=== PATIENT | male | born 1990 | race Caucasian/White ===

== ENCOUNTER → 2017-04-05 | Day surgery (SDC) | payer OTHER, MEDICAID, MEDICARE ==
[~2017-04-05] MED LIST: LIDOCAINE 1% PF 2 ML VIAL. ID; LIDOCAINE 2% PF Vial for OR 5 ML VIAL.; MIDAZOLAM HCL/PF 2 MG/2 ML VIAL. IV; PROPOFOL 40 ML IV; fentaNYL PF VIAL 100 MCG/2 ML VIAL IV
[2017-04-05] MEDS: IV RINGERS,LACTATED 1000ML 1,000 ML IV (11:29)
== END | disposition home or self-care (01) ==
LOC: SURG 10:41
DX: K21.0 Gastro-esophageal reflux disease with esophagitis (principal); F41.9 Anxiety disorder, unspecified; J45.909 Unspecified asthma, uncomplicated; F32.9 Major depressive disorder, single episode, unspecified; F17.200 Nicotine dependence, unspecified, uncomplicated; Z90.49 Acquired absence of other specified parts of digestive tract; Z72.89 Other problems related to lifestyle; Z72.0 Tobacco use
CPT/HCPCS: 43239; 88305; J2704

== ENCOUNTER 2019-06-22 10:19 | Emergency (ER) | payer OTHER, MEDICAID ==
[~2019-06-22] VITALS: Ht 182.9 cm; Wt 120.3 kg
[~2019-06-22 10:19] MED LIST changes: +ALPR1TAB2 PO; -LIDOCAINE 1% PF 2 ML VIAL. ID; -LIDOCAINE 2% PF Vial for OR 5 ML VIAL.; -MIDAZOLAM HCL/PF 2 MG/2 ML VIAL. IV; -PROPOFOL 40 ML IV; +antianxiety; +antidepressant; -fentaNYL PF VIAL 100 MCG/2 ML VIAL IV
--- NOTE | 2019-06-22 11:27 | PHYS DOC ---
Past Medical History Past Medical History: Bipolar, Other Additional Past Medical Histor: SCHIZOEFFECTIVE Past Surgical History: Other Additional Past Surgical Histo: KNEE/EAR Smoking Status: Current Every Day Smoker Additional Information: 0.25 PPD Alcohol Use: Rarely Adult General Chief Complaint Chief Complaint: BACK PAIN OR INJURY [facility] HPI Patient is a 28 year old male who presents to the ER with complaint of left sided flank/back pain. Patient states that he fell 8 days ago down 2 steps and landed on his left side. It this did not seem like a significant fall. The next day he was sore and it has continued to get worse since then. Movement makes his pain worse. His pain is rated as moderate to severe without radiculopathy. No medications taken prior to arrival. No difficulty with urination or saddle anesthesia. No Hematuria or dysuria Review of Systems Review of Systems All other ROS is negative unless otherwise stated in [facility] Allergies Allergies Allergies Coded Allergies Type Severity Reaction Last Updated Verified No Known Drug Allergies 04/05/17 No Physical Exam Physical Exam See above Constitutional: Well developed, well nourished, appears uncomfortable, non-toxic appearance. [] HENT: Normocephalic, atraumatic, bilateral external ears normal, oropharynx moist, no oral exudates, nose normal. [] Eyes: PERRLA, EOMI, conjunctiva normal, no discharge. [] Neck: Normal range of motion, no tenderness, supple, no stridor. [] Cardiovascular:Heart rate regular rhythm, no murmur [] Lungs & Thorax: Bilateral breath sounds clear to auscultation [] Abdomen: Bowel sounds normal, soft, no tenderness, no masses, no pulsatile m asses. [] Skin: Warm, dry, no erythema, no rash. [] Back: Tenderness to palpation left flank region. No midline step-offs or deformities noted Extremities: No tenderness, no cyanosis, no clubbing, ROM intact, no edema. [] Neurologic: Alert and oriented X 3, normal motor function, normal sensory f unction, no focal deficits noted. [] Psychologic: Affect normal, judgement normal, mood normal. [] Current Patient Data Vital Signs Vital Signs Date Time Temp Pulse Resp B/P (MAP) Pulse Ox O2 Delivery O2 Flow Rate FiO2 06/22/19 10:38 97.5 77 19 144/90 (108) 98 Room Air 97.5 Lab Values Laboratory Tests Test 06/22/19 11:25 Urine Collection Type Unknown Urine Color Yellow Urine Clarity Clear Urine pH 7.0 Urine Specific [place] 1.020 Urine Protein Negative mg/dL (NEG-TRACE) Urine Glucose (UA) Negative mg/dL (NEG) Urine Ketones (Stick) Negative mg/dL (NEG) Urine Blood Negative (NEG) Urine Nitrite Negative (NEG) Urine Bilirubin Negative (NEG) Urine Urobilinogen Dipstick 0.2 mg/dL (0.2 mg/dL) Urine Leukocyte Esterase Negative (NEG) Urine RBC 0 /HPF (0-2) Urine WBC 0 /HPF (0-4) Urine Squamous Epithelial Cells Occ /LPF Urine Bacteria 0 /HPF (0-FEW) Urine Mucus Marked /LPF Urine Opiates Screen Neg (NEG) Urine Methadone Screen Neg (NEG) Urine Barbiturates Neg (NEG) Urine Phencyclidine Screen Neg (NEG) Urine Amphetamine/Methamphetamine Neg (NEG) Urine Benzodiazepines Screen Pos (NEG) Urine Cocaine Screen Neg (NEG) Urine Cannabinoids Screen Pos (NEG) Urine Ethyl Alcohol Neg (NEG) EKG EKG [] Radiology/Procedures Radiology/Procedures EXAM: CHEST PA LATERAL INDICATION: Dysphagia. Patient took medicine this morning and vomited back up. Complains of a metallic taste in the mouth.. TECHNIQUE: PA and lateral views COMPARISON: Acute abdominal series of 03/30/2016 FINDINGS: The heart size is normal. The great vessels appear unremarkable. There is no hilar or mediastinal mass. The lungs are clear. There is no pleural effusion or pneumothorax. There are no significant osseous abnormalities. IMPRESSION: No active cardiopulmonary disease.[] Course & Med Decision Making Course & Med Decision Making Pertinent Labs and Imaging studies reviewed. (See chart for details) Patient seen for left flank pain after a fall. We'll get an x-ray of the patient's left ribs and the chest x-ray. Urinalysis to evaluate for renal injury. 1206: Patient's x-ray is unremarkable. His urinalysis does not show sign of infection or hematuria that would be concerning for renal injury. His UDS did test positive for benzos and marijuana but the patient states he has psychiatric medications that he takes nightly. Given his ongoing symptoms and we'll start him on muscle relaxer, steroids, anti-inflammatory and something for pain. He is to follow-up with his primary care physician next week for further evaluation if his symptoms continue. Dragon Disclaimer Dragon Disclaimer This electronic medical record was generated, in whole or in part, using a voice recognition dictation system. Departure Departure Impression: Primary Impression: Left flank pain Disposition: HOME, SELF-CARE Condition: STABLE Referrals: ELIZABETH GUERRIER MD (PCP) Call today for follow up appointment on Tuesday or Tuesday. Patient Instructions: Flank Pain Scripts Hydrocodone/Apap 5-325 (NORCO 5-325 TABLET) 1 Each Tablet 1 TAB PO PRN Q6HRS PRN for PAIN, #10 TAB 0 Refills Prov: KRZYSZTOF MURRELL DO 06/22/19 Cyclobenzaprine Hcl (CYCLOBENZAPRINE HCL) 10 Mg Tablet 1 TAB PO TID, #21 TAB Prov: KRZYSZTOF MURRELL DO 06/22/19 Diclofenac Sodium (DICLOFENAC SODIUM) 75 Mg Tablet.dr 1 TAB PO BID for 10 Days, #20 TAB 1 Refill Prov: KRZYSZTOF MURRELL DO 06/22/19 Prednisone (PREDNISONE) 50 Mg Tablet 1 TAB PO DAILY, #5 TAB Prov: KRZYSZTOF UMRRELL DO 06/22/19 KRZYSZTOF MURRELL DO Jun 22, 2019 11:27
--- NOTE | 2019-06-22 11:40 | RAD ---
RIBS LEFT AND PA CHEST History: Pain. Fall. Technique: PA view the chest and 3 views of the left ribs. Comparison: None. Findings: No consolidation or pleural effusion. Normal heart size. No pneumothorax. Surgical clips right upper quadrant. Prominence of the right hilum. Calcified right basilar pulmonary nodule. No displaced rib fractures. Impression: 1. No acute cardiopulmonary process. No displaced rib fractures. 2. Prominence of the right hilum, may relate to enlarged pulmonary vasculature or lymphadenopathy. Recommend comparison with prior imaging studies. Electronically signed by: Abilio Felton DO (06/22/2019 11:37 AM) [id number]
[2019-06-22 11:42] LABS: BILIRUBIN,URINE NEGATIVE (NEG); CLARITY,URINE CLEAR; COLOR,URINE YELLOW; NITRITE,URINE NEGATIVE (NEG); PROTEIN,URINE NEGATIVE (NEG-TRACE); UROBILINOGEN,URINE 0.2 mg/dL (0.2 mg/dL)
[2019-06-22 11:46] LABS: BACTERIA,URINE 0 /HPF (0-FEW); RBC,URINE 0 /HPF (0-2); SQUAMOUS EPITHELIAL CELL,UR OCC /LPF; WBC,URINE 0 /HPF (0-4)
[2019-06-22 11:52] LABS: BARBITURATES NEG (NEG); BENZODIAZEPINES POS (NEG); CANNABINOIDS POS (NEG); COCAINE NEG (NEG); METHADONE NEG (NEG); OPIATES NEG (NEG); PHENCYCLIDINE NEG (NEG)
[2019-06-22 11:54] LABS: AMPHETAMINE/METHAMPHETAMINE NEG (NEG)
[2019-06-22] MEDS ORDERED: HYDR-3164 PO (12:09)
[2019-06-22] MEDS ORDERED: PRED50TA PO (12:09)
[2019-06-22] MEDS ORDERED: CYCL10TA2 PO (12:09)
[2019-06-22] MEDS ORDERED: DICL75TA PO (12:09)
[2019-06-22 12:14] VITALS: BP 146/78
== END 2019-06-22 12:14 | disposition home or self-care (01) ==
LOC: ER 10:19
DX: R10.9 Unspecified abdominal pain (principal); R07.81 Pleurodynia; G89.11 Acute pain due to trauma; F31.9 Bipolar disorder, unspecified; F17.200 Nicotine dependence, unspecified, uncomplicated; W10.8XXA Fall (on) (from) other stairs and steps, initial encounter; Y93.89 Activity, other specified; Y92.89 Other specified places as the place of occurrence of the external cause; Y99.8 Other external cause status
CPT/HCPCS: 71101; 80307; 81001; 99284-25

== ENCOUNTER 2019-12-11 00:44 | Emergency (ER) | payer OTHER, MEDICAID ==
[~2019-12-11] VITALS: Ht 198.1 cm; Wt 118.0 kg
[~2019-12-11 00:44] MED LIST changes: +CYCL10TA2 PO; +DICL75TA PO; +HYDR-3164 PO; +PRED50TA PO
[2019-12-11 00:50] VITALS: BP 142/82
[2019-12-11] MEDS ORDERED: ONDANSETRON PF 4 MG/2 ML VIAL. IVP ONE (02:00)
[2019-12-11 02:36] LABS: BILIRUBIN,URINE NEGATIVE (NEG); CLARITY,URINE CLEAR; COLOR,URINE YELLOW; NITRITE,URINE NEGATIVE (NEG); PROTEIN,URINE NEGATIVE (NEG-TRACE)
[2019-12-11 02:37] LABS: BASO # 0.1 x10^3/uL (0.0-0.2); BASO % 1 % (0-3); EOS # 0.1 x10^3/uL (0.0-0.7); EOS % 1 % (0-3); HEMATOCRIT 46.1 % (39.0-53.0); HEMOGLOBIN 16.1 g/dL (13.0-17.5); LYMPH # 2.6 x10^3/uL (1.0-4.8); LYMPH % 18 % (24-48); MEAN CORPUSCULAR HEMOGLOBIN 29 pg (25-35); MEAN CORPUSCULAR HGB CONC 35 g/dL (31-37); MEAN CORPUSCULAR VOLUME 83 fL (79-100); MONO # 1.1 x10^3/uL (0.0-1.1); MONO % 7 % (0-9); NEUT # 10.6 x10^3/uL (1.8-7.7); NEUT % 74 % (31-73); PLATELET COUNT 366 x10^3/uL (140-400); RED BLOOD COUNT 5.54 x10^6/uL (4.30-5.70); RED CELL DISTRIBUTION WIDTH 13.4 % (11.5-14.5); WHITE BLOOD COUNT 14.4 x10^3/uL (4.0-11.0)
[2019-12-11 02:42] LABS: BACTERIA,URINE 0 /HPF (0-FEW); RBC,URINE 0 /HPF (0-2); SQUAMOUS EPITHELIAL CELL,UR OCC /LPF; WBC,URINE 0 /HPF (0-4)
[2019-12-11 02:52] LABS: ALBUMIN 4.5 g/dL (3.4-5.0); ALBUMIN/GLOBULIN RATIO 1.3 (1.0-1.7); CALCIUM 9.4 mg/dL (8.5-10.1); CREATININE 0.8 mg/dL (0.7-1.3); GFR 113.5; TOTAL BILIRUBIN 0.7 mg/dL (0.2-1.0); TOTAL PROTEIN 7.9 g/dL (6.4-8.2)
[2019-12-11 03:03] LABS: POTASSIUM 2.9 mmol/L (3.5-5.1)
--- NOTE | 2019-12-11 03:08 | PHYS DOC ---
Past Medical History Past Medical History: Bipolar, Other Additional Past Medical Histor: SCHIZOEFFECTIVE Past Surgical History: Other Additional Past Surgical Histo: KNEE/EAR Smoking Status: Current Every Day Smoker Alcohol Use: Rarely Social History Narrative: OVER 24 HOURS AGO. General Adult EDM: Chief Complaint: ABDOMINAL PAIN HPI: HPI: Patient is a 29 year old male who presents with chronic intermittent abdominal pain. Patient reports that since his cholecystectomy 2 years ago he has had a change in bowel movements as well as intermittent epigastric abdominal pain and vomiting. Tonight he stated that he did have this again. On Tuesday he said he started having abdominal pain and then on Tuesday he began to have episodes of vomiting. He said he vomited probably about 5-10 times. The epigastric abdominal pain is sharp, nonradiating and intermittent. Patient denied any diarrhea, melena, hematochezia or hematemesis. He also denied any fever, chills, shortness of breath or chest pain. Review of Systems: Review of Systems: Constitutional: Denies fever or chills. [] Eyes: Denies change in visual acuity. [] HENT: Denies nasal congestion or sore throat. [] Respiratory: Denies cough or shortness of breath. [] Cardiovascular: Denies chest pain or edema. [] GI: Denies abdominal pain, nausea, vomiting, bloody stools or diarrhea. [] : Denies dysuria. [] Musculoskeletal: Denies back pain or joint pain. [] Integument: Denies rash. [] Neurologic: Denies headache, focal weakness or sensory changes. [] Endocrine: Denies polyuria or polydipsia. [] Lymphatic: Denies swollen glands. [] Psychiatric: Denies depression or anxiety. [] Heart Score: Risk Factors: Risk Factors: DM, Current or recent (<one month) smoker, HTN, HLP, family history of CAD, obesity. Risk Scores: Score 0 - 3: 2.5% MACE over next 6 weeks - Discharge Home Score 4 - 6: 20.3% MACE over next 6 weeks - Admit for Clinical Observation Score 7 - 10: 72.7% MACE over next 6 weeks - Early Invasive Strategies Current Medications: Current Medications Medications (Trade) Dose Ordered Sig/Erik Start Time Stop Time Status Last Admin Dose Admin Al Hydroxide/Mg Hydroxide (Mylanta Plus Xs) 30 ml 1X ONCE 12/11/19 03:15 12/11/19 03:16 UNV Famotidine (Pepcid) 20 mg 1X ONCE 12/11/19 03:15 12/11/19 03:16 UNV Metoclopramide HCl (Reglan Vial) 10 mg 1X ONCE 12/11/19 03:15 12/11/19 03:16 UNV Ondansetron HCl (Zofran) 4 mg 1X ONCE 12/11/19 02:00 12/11/19 02:01 DC 12/11/19 02:11 4 MG Potassium Chloride (Klor-Con) 60 meq 1X ONCE 12/11/19 03:15 12/11/19 03:16 UNV Sodium Chloride 500 ml @ 500 mls/hr 1X ONCE 12/11/19 03:15 12/11/19 04:14 UNV Allergies: Allergies: Allergies Coded Allergies Type Severity Reaction Last Updated Verified No Known Drug Allergies 04/05/17 No Physical Exam: PE: Constitutional: Well developed, well nourished, no acute distress, non-toxic appearance. [] HENT: Normocephalic, atraumatic, bilateral external ears normal, oropharynx moist, no oral exudates, nose normal. [] Eyes: PERRLA, EOMI, conjunctiva normal, no discharge. [] Neck: Normal range of motion, no tenderness, supple, no stridor. [] Cardiovascular:Heart rate regular rhythm, no murmur [] Lungs & Thorax: Bilateral breath sounds clear to auscultation [] Abdomen: Bowel sounds normal, soft, epigastric tenderness, negative Barber sign, no masses, no pulsatile masses. [] Skin: Warm, dry, no erythema, no rash. [] Back: No tenderness, no CVA tenderness. [] Extremities: No tenderness, no cyanosis, no clubbing, ROM intact, no edema. [] Neurologic: Alert and oriented X 3, normal motor function, normal sensory function, no focal deficits noted. [] Psychologic: Affect normal, judgement normal, mood normal. [] Current Patient Data: Labs: Laboratory Tests Test 12/11/19 00:52 12/11/19 01:50 12/11/19 02:18 Urine Collection Type Unknown Urine Color Yellow Urine Clarity Clear Urine pH 7.0 (<5.0-8.0) Urine Specific [place] <=1.005 (1.000-1.030) Urine Protein Negative mg/dL (NEG-TRACE) Urine Glucose (UA) Negative mg/dL (NEG) Urine Ketones (Stick) 15 mg/dL (NEG) Urine Blood Negative (NEG) Urine Nitrite Negative (NEG) Urine Bilirubin Negative (NEG) Urine Urobilinogen Dipstick 1.0 mg/dL (0.2 mg/dL) Urine Leukocyte Esterase Negative (NEG) Urine RBC 0 /HPF (0-2) Urine WBC 0 /HPF (0-4) Urine Squamous Epithelial Cells Occ /LPF Urine Bacteria 0 /HPF (0-FEW) Urine Mucus Slight /LPF Sodium Level 137 mmol/L (136-145) Potassium Level 2.9 mmol/L (3.5-5.1) *L Chloride Level 101 mmol/L (98-107) Carbon Dioxide Level 17 mmol/L (21-32) L Anion Gap 19 (6-14) H Blood Urea Nitrogen 13 mg/dL (8-26) Creatinine 0.8 mg/dL (0.7-1.3) Estimated GFR (Cockcroft-Gault) 113.5 BUN/Creatinine Ratio 16 (6-20) Glucose Level 121 mg/dL (70-99) H Calcium Level 9.4 mg/dL (8.5-10.1) Total Bilirubin 0.7 mg/dL (0.2-1.0) Aspartate Amino Transferase (AST) 24 U/L (15-37) Alanine Aminotransferase (ALT) 42 U/L (16-63) Alkaline Phosphatase 108 U/L (46-116) Total Protein 7.9 g/dL (6.4-8.2) Albumin 4.5 g/dL (3.4-5.0) Albumin/Globulin Ratio 1.3 (1.0-1.7) White Blood Count 14.4 x10^3/uL (4.0-11.0) H Red Blood Count 5.54 x10^6/uL (4.30-5.70) Hemoglobin 16.1 g/dL (13.0-17.5) Hematocrit 46.1 % (39.0-53.0) Mean Corpuscular Volume 83 fL (79-100) Mean Corpuscular Hemoglobin 29 pg (25-35) Mean Corpuscular Hemoglobin Concent 35 g/dL (31-37) Red Cell Distribution Width 13.4 % (11.5-14.5) Platelet Count 366 x10^3/uL (140-400) Neutrophils (%) (Auto) 74 % (31-73) H Lymphocytes (%) (Auto) 18 % (24-48) L Monocytes (%) (Auto) 7 % (0-9) Eosinophils (%) (Auto) 1 % (0-3) Basophils (%) (Auto) 1 % (0-3) Neutrophils # (Auto) 10.6 x10^3/uL (1.8-7.7) H Lymphocytes # (Auto) 2.6 x10^3/uL (1.0-4.8) Monocytes # (Auto) 1.1 x10^3/uL (0.0-1.1) Eosinophils # (Auto) 0.1 x10^3/uL (0.0-0.7) Basophils # (Auto) 0.1 x10^3/uL (0.0-0.2) Laboratory Tests 12/11/19 02:18 Laboratory Tests 12/11/19 01:50 Vital Signs: Vital Signs Date Time Temp Pulse Resp B/P (MAP) Pulse Ox O2 Delivery O2 Flow Rate FiO2 12/11/19 00:50 98.0 69 18 142/82 (102) 100 Room Air 98.0 EKG: EKG: Heart rate 61 bpm, normal sinus rhythm, incomplete right bundle branch block, normal axes, abnormal ECG [] Radiology/Procedures: Radiology/Procedures: [] Course & Med Decision Making: Course & Med Decision Making Pertinent Labs and Imaging studies reviewed. (See chart for details) [] Dragon Disclaimer: Dragon Disclaimer: This electronic medical record was generated, in whole or in part, using a voice recognition dictation system. Departure Departure Impression: Primary Impression: Acute gastritis without hemorrhage Qualified Codes: K29.00 - Acute gastritis without bleeding Additional Impressions: Epigastric abdominal pain Hypokalemia Nausea and vomiting Qualified Codes: R11.14 - Bilious vomiting Disposition: HOME, SELF-CARE Condition: IMPROVED Referrals: ELIZABETH GUERRIER MD (PCP) Patient Instructions: Gastritis, Adult Additional Instructions: You may use Maalox intermittently, consider taking Tums before each meal. Please follow-up with your primary care physician Scripts Metoclopramide Hcl (REGLAN) 10 Mg Tablet 1 TAB PO Q6HRS PRN for NAUSEA/VOMITING, #10 TAB 0 Refills before food and bedtime Prov: MONA US MD 12/11/19 Omeprazole (OMEPRAZOLE) 40 Mg Capsule.dr 40 MG PO DAILY for 30 Days, #30 CAP Take 1/2-hour before the first meal the day Prov: MONA US MD 12/11/19 Justicifation of Admission Dx: Justifications for Admission: Justification of Admission Dx: N/A MONA US MD Dec 11, 2019 03:08
[2019-12-11] MEDS ORDERED: IV NORMAL SALINE 500ML BAG 500 ML IV ONE (03:15)
[2019-12-11] MEDS ORDERED: FAMOTIDINE 20 MG TABLET. PO ONE (03:30)
[2019-12-11] MEDS ORDERED: POTASSIUM CHLORIDE 20 MEQ TABLET.ER. PO ONE (03:30)
[2019-12-11] MEDS ORDERED: METOCLOPRAMIDE HCL 10 MG/2 ML VIAL. IVP ONE (03:30)
[2019-12-11] MEDS ORDERED: MAG HYDROX/ALUMINUM HYD/SIMETH 30 ML ORAL.SUSP PO ONE (03:30)
[2019-12-11] MEDS ORDERED: IV NORMAL SALINE 1000ML BAG 1,000 ML IV ONE (03:30)
[2019-12-11] MEDS ORDERED: METO10TA81 PO (04:39)
[2019-12-11] MEDS ORDERED: OMEP40CA45 PO (04:39)
--- NOTE | 2019-12-11 07:25 | EKG ---
[facility] [address] [place] [address] Test Date: 2019-12-11 Test Time: 01:58:53 Pat Name: JORDON TINEO Department: Room: Gender: M Qc Tech: : 1990 Requested By: MONA US Order Number: [id number] Reading MD: Measurements Intervals Lindstrom Rate: 61 P: 29 NC: 158 QRS: 32 QRSD: 118 T: 28 QT: 414 QTc: 418 Interpretive Statements SINUS RHYTHM INCOMPLETE RIGHT BUNDLE BRANCH BLOCK QRS(T) CONTOUR ABNORMALITY CONSIDER ANTEROSEPTAL MYOCARDIAL DAMAGE POSSIBLY ABNORMAL ECG RI6.01 No previous ECG available for comparison
== END 2019-12-11 05:38 | disposition home or self-care (01) ==
LOC: ER 00:44
DX: K29.00 Acute gastritis without bleeding (principal); R10.13 Epigastric pain; G89.29 Other chronic pain; R11.14 Bilious vomiting; E87.6 Hypokalemia; I45.10 Unspecified right bundle-branch block; F25.0 Schizoaffective disorder, bipolar type; F17.200 Nicotine dependence, unspecified, uncomplicated; Z90.49 Acquired absence of other specified parts of digestive tract
CPT/HCPCS: 36415; 80053; 81001; 83690; 85025; 93005; 96374; 96375; 99284; J2405; J2765; J7030; 96361

== ENCOUNTER 2021-03-03 14:55 | Emergency (ER) | payer OTHER, MEDICAID ==
[~2021-03-03] VITALS: Ht 182.9 cm; Wt 148.0 kg
[~2021-03-03 14:55] MED LIST changes: +CYCL10TA19 PO; -CYCL10TA2 PO; +METO10TA81 PO; +OMEP40CA7 PO
[2021-03-03 15:15] VITALS: BP 146/82
[2021-03-03] MEDS ORDERED: ORPHENADRINE CITRATE 60 MG/2 ML VIAL. IM ONE (15:30)
[2021-03-03] MEDS ORDERED: KETOROLAC 60 MG/2 ML VIAL. IM ONE (15:30)
--- NOTE | 2021-03-03 16:22 | RAD ---
EXAM: CT lumbar spine without IV contrast CLINICAL HISTORY: BACK PAIN COMPARISON: None available. TECHNIQUE: Helical CT was performed through the lumbar spine. Axial, coronal and sagittal reformatted images were generated. PQRS compliance statement - One or more of the following individualized dose reduction techniques wer e utilized for this study: 1. Automated exposure control 2. Adjustment of the mA and/or kV according to patient size 3. Use of iterative reconstruction technique FINDINGS: Vertebral body heights are preserved. Disc heights are preserved. No spondylolisthesis. Straightening of the normal lumbar lordosis. No acute fracture. No SI joint diastases. Visualized retroperitoneum is grossly unremarkable. IMPRESSION: No acute lumbar spine fracture or subluxation. Electronically signed by: Stevan Campbell MD (03/03/2021 4:20 PM) [id number]
[2021-03-03] MEDS ORDERED: CYCL5TAB PO (16:28)
--- NOTE | 2021-03-03 16:31 | PHYS DOC ---
Past Medical History Past Medical History: Bipolar, Other Additional Past Medical Histor: SCHIZOEFFECTIVE (CHONG MARCIAL APRN) Past Surgical History: No Surgical History Additional Past Surgical Histo: KNEE/EAR (CHONG MARCIAL APRN) Smoking Status: Never Smoker Alcohol Use: Rarely (CHONG MARCIAL APRN) General Adult EDM: Chief Complaint: BACK PAIN OR INJURY HPI: HPI: Patient is a 30-year-old male who presents to the emergency department for bilateral low back pain. He reports that the back pain started after he was squatting 50 pounds. He went to the urgent care and they told him that he had a muscle strain. He reports that the left lower back pain does radiate into his buttock. He rates a 10 out of 10. No treatment prior to arrival. He denies any saddle anesthesias, loss of bowel or bladder, numbness or tingling down his legs. He is able to bear weight and ambulate with a steady gait. Patient has a history of chronic back pain. (CHONG MARCIAL APRN) Review of Systems: Review of Systems: 14 body systems of the review of systems have been reviewed. See HPI for pertinent positive and negative responses, otherwise all other systems are negative, nonpertinent or noncontributory (CHONG MARCIAL APRN) Heart Score: C/O Chest Pain: N/A Risk Factors: Risk Factors: DM, Current or recent (<one month) smoker, HTN, HLP, family history of CAD, obesity. Risk Scores: Score 0 - 3: 2.5% MACE over next 6 weeks - Discharge Home Score 4 - 6: 20.3% MACE over next 6 weeks - Admit for Clinical Observation Score 7 - 10: 72.7% MACE over next 6 weeks - Early Invasive Strategies (CHONG MARCIAL APRN) Current Medications: Current Medications Medications (Trade) Dose Ordered Sig/Erik Start Time Stop Time Status Last Admin Dose Admin Ketorolac Tromethamine (Toradol Im) 60 mg 1X ONCE 03/03/21 15:30 03/03/21 15:32 DC 03/03/21 15:50 60 MG Orphenadrine Citrate (Norflex) 60 mg 1X ONCE 03/03/21 15:30 03/03/21 15:32 DC 03/03/21 15:50 60 MG (CHONG MARCIAL APRN) Allergies: Allergies: Allergies Coded Allergies Type Severity Reaction Last Updated Verified No Known Drug Allergies 04/05/17 No (CHONG MARCIAL APRN) Physical Exam: PE: Constitutional: Well developed, well nourished, no acute distress, non-toxic appearance. [] HENT: Normocephalic, atraumatic, bilateral external ears normal, oropharynx moist, no oral exudates, nose normal. [] Eyes: PERRL, EOMI, conjunctiva normal, no discharge. [] Neck: Normal range of motion, no stridor Cardiovascular: Normal peripheral perfusion Lungs & Thorax: Normal work of breathing, no tachypnea Abdomen: Obese, nontender Skin: Warm, dry, no erythema, no rash. [] Back: Normal range of motion, bilateral paraspinal lumbar tenderness with palpation Extremities: No tenderness, no cyanosis, no clubbing, ROM intact, no edema. [] Neurologic: Alert and oriented X 3, normal motor function, normal sensory funct ion, no focal deficits noted. [] Psychologic: Affect normal, judgement normal, mood normal. [] (CHONG MARCIAL APRN) Current Patient Data: Vital Signs: Vital Signs Date Time Temp Pulse Resp B/P (MAP) Pulse Ox O2 Delivery O2 Flow Rate FiO2 03/03/21 15:15 97.5 84 24 146/82 (103) 95 Room Air 97.5 (CHONG MARCIAL APRN) EKG: EKG: [] (CHONG MARCIAL APRN) Radiology/Procedures: Radiology/Procedures: []REASON: BACK PAIN PROCEDURE: CT LUMBAR SPINE WO CONTRAST EXAM: CT lumbar spine without IV contrast CLINICAL HISTORY: BACK PAIN COMPARISON: None available. TECHNIQUE: Helical CT was performed through the lumbar spine. Axial, coronal and sagittal reformatted images were generated. PQRS compliance statement - One or more of the following individualized dose reduction techniques were utilized for this study: 1. Automated exposure control 2. Adjustment of the mA and/or kV according to patient size 3. Use of iterative reconstruction technique FINDINGS: Vertebral body heights are preserved. Disc heights are preserved. No spondylolisthesis. Straightening of the normal lumbar lordosis. No acute fracture. No SI joint diastases. Visualized retroperitoneum is grossly unremarka ble. IMPRESSION: No acute lumbar spine fracture or subluxation. Electronically signed by: Stevan Akers MD (03/03/2021 4:20 PM) [id number] DICTATED and SIGNED BY: STEVAN AKERS MD DATE: 03/03/21 [id number] (CHONG MARCIAL APRN) Course & Med Decision Making: Course & Med Decision Making Pertinent Labs and Imaging studies reviewed. (See chart for details) Patient presents to the emergency department for low back pain that radiates down right leg. CT scan of lumbar spine shows no acute findings. She is patient was treated with anti-inflammatory muscle relaxer injection. Patient advised follow-up with his primary care provider. Advised to take anti- inflammatory medications and muscle relaxers. I discussed with patient all findings and diagnostic testing as well as the need to follow-up with PCP for further evaluation and treatment or return to the ER if any new or worsening symptoms. Strict return precautions were also discussed at length. Patient voiced understanding and agreement with the plan. Patient is hemodynamically stable at the time of disposition. (CHONG MARCIAL APRN) Dragon Disclaimer: Dragon Disclaimer: This electronic medical record was generated, in whole or in part, using a voice recognition dictation system. (CHONG MARCIAL APRN) Departure Departure Impression: Primary Impression: Back pain Qualified Codes: M54.42 - Lumbago with sciatica, left side Disposition: 01 HOME / SELF CARE / HOMELESS Condition: GOOD Referrals: ELIZABETH GUERRIER MD (PCP) Patient Instructions: Back Pain, Adult Additional Instructions: You were seen in the ER today for low back pain. CT scan of your lumbar spine showed no acute findings. Your pain is most likely due to a muscle strain and should improve with ibuprofen. You are being discharged home with a muscle relaxer, take this as directed. This medication may cause drowsiness so do not take when you need to be alert, driving a vehicle or with alcohol. Your symptom s may improve by stretching and activity also. I would advise you to follow-up with your primary care provider tomorrow regarding your ER visit. You should return to the ER if you develop worsening pain, fever, numbness, tingling, weakness, bowel or bladder problems, or any new or concerning symptoms. Scripts Cyclobenzaprine Hcl (CYCLOBENZAPRINE HCL) 5 Mg Tablet 1 TAB PO TID for muscle spasm for 7 Days, #21 TAB 0 Refills Prov: CHONG MARCIAL APRN 03/03/21 Attending Signature I have participated in the care of this patient and I have reviewed and agree with all pertinent clinical information above including history, exam, and recommendations. (LUCIANO NOLAN DO) CHONG MARICAL APRN Mar 03, 2021 16:31 LUCIANO NOLAN DO Mar 03, 2021 17:13
== END 2021-03-03 16:51 | disposition home or self-care (01) ==
LOC: ER 14:55
DX: M54.42 Lumbago with sciatica, left side (principal); F31.9 Bipolar disorder, unspecified
CPT/HCPCS: 72131; 96372; 99284; J1885; J2360

== ENCOUNTER → 2021-07-16 | Outpatient (CLI) | payer OTHER, MEDICAID ==
[~2021-07-16] MED LIST changes: +CYCL5TAB PO
--- NOTE | 2021-07-16 14:40 | KCIC ---
MR LUMBAR SPINE WO -[id number] History: Reason: CHRONIC LBP WITH LUMBAR RADICULITIS / Spl. Instructions: BLE pain at times. / Histor y: Injured lower back lifting weights 2 months ago. LBP and locking. Technique: Multiplanar, multi sequential MR imaging was performed of the lumbar spine. Comparison: CT March 03, 2021 Findings: Normal vertebral body height and alignment. No fracture. Congenitally small spinal canal. Conus terminates at the normal location. No evidence of nerve root clumping. L1-L2: No canal or neuroforaminal narrowing. L2-L3: No canal or neuroforaminal narrowing. L3-L4: Minimal disc bulge. Mild facet arthropathy. No canal or neuroforaminal narrowing. L4-L5: Small central disc extrusion extending inferiorly. Mild canal narrowing. Moderate subarticula r recess narrowing, left greater than right. Mild facet arthropathy. Mild left neuroforaminal narrowi ng. Small left foraminal disc protrusion. L5-S1: Left subarticular disc extrusion with annular fissure. Mild left neuroforaminal narrowing. Ab utment of the descending left S1 nerve root. Mild facet arthropathy. No canal narrowing. Mild left ne uroforaminal narrowing. Impression: 1. Mild lumbar spondylosis L4-5 and L5-S1. 2. L4-L5 central disc extrusion contribute mild canal and moderate left subarticular narrowing with abutment of the descending left L5 nerve root. Correlate for radiculopathy. 3. L5-S1 left subarticular disc extrusion contributing to left subarticular recess narrowing with ab utment of descending S1 nerve root. Correlate for radiculopathy. Electronically signed by: Abilio Felton DO (07/16/2021 2:37 PM) [id number]
--- NOTE | 2021-07-16 14:55 | KCIC ---
2 views of the skull 07/16/2021 INDICATION: Foreign body evaluation. Prior MRI. Discussion: 2 views of the skull obtained. No fracture is identified. There is a metallic density rad iopaque foreign body projecting over the right cheek. Correlate with clinical findings. No other conc erning radiopaque foreign bodies are identified. No other acute osseous and normalities are seen. IMPRESSION: Small radiopaque foreign body. Imaging over the right cheek. Correlate with history and p hysical exam Electronically signed by: Randall Stout MD (07/16/2021 2:52 PM) [id number]
== END ==
LOC: KCIC MRI 13:02
PROVIDERS: ATTEND Physical Medicine & Rehabilitation
DX: M47.817 Spondylosis without myelopathy or radiculopathy, lumbosacral region (principal); M51.87 Other intervertebral disc disorders, lumbosacral region; M51.27 Other intervertebral disc displacement, lumbosacral region; M48.07 Spinal stenosis, lumbosacral region; M48.8X7 Other specified spondylopathies, lumbosacral region; M51.37 Other intervertebral disc degeneration, lumbosacral region; Z18.9 Retained foreign body fragments, unspecified material
CPT/HCPCS: 70250; 72148